=== PATIENT | female | born 1930 | race Caucasian/White ===

== ENCOUNTER 2016-09-04 22:20 | Observation (INO) | payer MEDICARE, MEDICAID, OTHER ==
[~2016-09-04] VITALS: Ht 162.6 cm; Wt 45.1 kg
[2016-09-04 23:18] VITALS: BP 146/68; PULSE 67; RESP 16; O2SAT 98
[2016-09-04] MEDS ORDERED: Alum-Mag Hydrox-Simeth 30 mL Suspension PO PRN (23:25)
[2016-09-04] MEDS ORDERED: Ondansetron 2 mg/mL 2 mL Inj IVPUSH PRN (23:25)
[2016-09-04] MEDS ORDERED: Polyethylene Glycol (PEG) 17 Gm Powder PO PRN (23:25)
[2016-09-04] MEDS: 0.9% Sodium Chloride 1,000 ML IV SCH (23:47)
[2016-09-05 00:44] LABS: BASOPHILS % (AUTO) 0.2 % (0-3); EOSINOPHILS % (AUTO) 0.6 % (0-5); MONOCYTES % (AUTO) 10.6 % (4-12); Mean Corpuscular Hemoglobin 25.4 pg (27.0-35.0); Mean Corpuscular Volume 80.3 fL (81-100); NEUTROPHILS % (AUTO) 71.2 % (40-74); Platelet Count 359 bil/L (150-400)
[2016-09-05 00:51] LABS: Magnesium 2.2 mg/dL (1.6-2.6)
[2016-09-05 02:09] LABS: APPEARANCE,URINE SLIGHTLY CLOUDY (CLEAR,HAZY); COLOR,URINE YELLOW (YELLOW); OCCULT BLOOD,URINE LARGE (NEGATIVE); UROBILINOGEN,URINE NORMAL (NORMAL)
--- NOTE | 2016-09-05 04:06 | HP ---
[address] [address] HISTORY AND PHYSICAL PATIENT: ALIYAH CALDERON : 1930 MR#: [id number] ADMIT: 09/04/2016 JOB ID: [id number] DATE OF SERVICE: 09/04/2016 PRIMARY CARE PROVIDER: None listed. CHIEF COMPLAINT: Altered mental status, very drowsy. HISTORY OF PRESENT ILLNESS: This is an 86-year-old female, who was a resident of a [facility]. Best I can tell, was transferred here from [facility] as there were apparently no beds at [facility]. She was found to have a urinary tract infection with UA significant for specific gravity greater than 1.030, trace protein, 1-3 WBCs, greater than 15 epithelial cells, many bacteria and leukocyte esterase was negative. Negative nitrite. White count 9.3, hematocrit 34.7, MCV 78, platelets 406. Calculated GFR was greater than 60. TSH 4.824. Chest x-ray appeared clear per ER MD at [facility], had CT of head without contrast, which did not reveal any abnormalities. The patient cannot give a history. Apparently her p.o. intake was fairly poor over the past several days. She has a post form which states DNR limited interventions. PAST MEDICAL HISTORY: Dementia, history of OCD, history of dysphagia, history of renal failure. MEDICATIONS: Upon admission: 1. Celexa 10 mg p.o. daily. 2. Melatonin 5 mg at bedtime daily. 3. Seroquel 300 mg at bedtime daily. 4. Lorazepam 0.5 mg p.r.n. 6. Vitamin D 400 units p.o. daily. 7. Tylenol 650 mg once weekly. 8. MiraLAX 17 g p.o. daily. 9. Multivitamin 1 tab p.o. daily. ALLERGIES: 1. CHLORPROMAZINE. 2. THIORIDAZINE. SOCIAL HISTORY: Lives at [facility]. Smoking and alcohol apparently none. REVIEW OF SYSTEMS: Unable to get a history from her. PHYSICAL EXAMINATION: Reveals blood pressure 119/63, heart rate 62, respiratory rate 15, O2 sat room air 95%. Constitutional: Elderly woman who appears cachectic. Head: Normocephalic, atraumatic. Eyes: PERRLADC. Mouth: No lesions. Neck: No adenopathy. Chest is clear to auscultation. Cor: Regular rate and rhythm. S1, S2. Abdomen is soft, nontender. Bowel sounds are present. Extremity exam reveals no pedal edema. Skin reveals no rashes. Psych: Unable to assess. Neuro: She responds to painful stimuli, does seem to move all extremities, will not respond to verbal commands. LABORATORIES: As above. Also to include white count 9.3, hematocrit 34.7, MCV 78, platelets of 406 with 77% polys, 14% lymphs. INR is 1.1. Lactic acid 1.0. Glucose 113, BUN 28, creatinine 0.8. Calculated GFR greater than 60. Sodium 145, potassium 4.0, chloride 108, bicarb 27, calcium 8.9. Total protein 7.5, albumin 2.7, total bili 0.4, alkaline phosphatase 65, ALT 19, AST 28. We need to get CT of head results, which were given to me by ED physician. ASSESSMENT AND PLAN: 1. Urinary tract infection ,present on admit,Acute, place on IV Rocephin. I am a bit concerned that her urine does not show any white cells and is a poor specimen with a lot of epithelial cells and bacteria. We will try to get a straight cath specimen from her. We will continue with IV Rocephin. Monitor labs. 2. Acute encephalopathy,present on admit,acute Most likely related to possible UTI and dehydration. Proceed with treatment for these and monitor. 3. Dementia, present on admission, chronic. 4. Deep venous thrombosis prophylaxis. We will use sequential compression devices and subcu Lovenox. 5. Psychiatric disease. We will continue with her home meds but will get a swallow eval prior to giving. CODE STATUS: The patient is DNR and limited interventions. TIME SPENT: 60 minutes. ASHUTOSH
[2016-09-05] MEDS ORDERED: DIPH25CA6 PO (05:05)
[2016-09-05] MEDS ORDERED: ESCI5SOL4 PO (05:05)
[2016-09-05] MEDS ORDERED: MULT-1018 PO (05:05)
[2016-09-05] MEDS ORDERED: ACET325T51 PO (05:05)
[2016-09-05] MEDS ORDERED: ERGO400T3 PO (05:05)
[2016-09-05] MEDS ORDERED: LORA0.5T PO (05:05)
[2016-09-05] MEDS ORDERED: QUET50TA55 PO ×2 (05:05)
[2016-09-05] MEDS ORDERED: MELA5TAB14 PO (05:05)
[2016-09-05] MEDS ORDERED: DEXT1DRO8 BOTH_EYES (05:05)
[2016-09-05] MEDS ORDERED: DOCU250C2 PO (05:05)
[2016-09-05] MEDS ORDERED: QUET300T44 PO (05:05)
[2016-09-05] MEDS ORDERED: TRAZ-115 PO ×2 (05:05)
[2016-09-05] MEDS ORDERED: POLY17PO2 PO (05:05)
[2016-09-05] MEDS ORDERED: BISA10EN RC (05:05)
[2016-09-05] MEDS ORDERED: ESCI10TA52 PO (05:08)
[2016-09-05 05:11] VITALS: BP 134/73; PULSE 75; RESP 18; O2SAT 95
--- NOTE | 2016-09-05 06:41 | NUR ---
Admit Pt admitted around 2345 from [facility]. Pt non-verbal on arrival and does not follow any commands. Admit done from HP from care facility, Med rec completed according to MAR from care facility. UA obtained via straight cath. Pt moaning occasionally but unable to make needs known.
[2016-09-05] MEDS: cefTRIAXone Inj 1,000 MG in IV Premix 1 EACH IV SCH (08:39)
[2016-09-05 09:44] VITALS: BP 138/70; PULSE 71; RESP 19; O2SAT 98
[2016-09-05] MEDS: 0.9% Sodium Chloride 1,000 ML IV SCH ×2 (10:12→19:23)
--- NOTE | 2016-09-05 12:50 | NUR ---
Evaluation completed. Please go to "Notes" then click on "Assessments and Notes" (bottom left corner of screen). Then select appropriate discipline tab on top of screen.
[2016-09-05 15:07] VITALS: BP 145/83; PULSE 66; RESP 19; O2SAT 99
--- NOTE | 2016-09-05 16:10 | NUR ---
NUTRITION ASSESSMENT: ASSESS:86 YO female admitted with urinary tract infection. [facility] and apparently has had minimal PO intake past several days. She presents with acute encephalopathy, present on admit, most likely related to possible UTI and dehydration, although she does have dementia. Swallow evaluation ordered; per Speech Therapy, the patient is not safe for oral intake at this time. Code status: DNR / DNI with limited interventions. PMHx:Dementia, history of OCD, history of dysphagia, history of renal failure. DIET:NPO. LABS: Reviewed. Cr 0.54, Glu 103, Alb 3.1. MEDICATIONS: Reviewed. NUTRITION FOCUSED PHYSICAL ASSESSMENT: GI symptoms / stool: None reported.Manohar: 14. Skin Integrity: No issues reported. ANTHROPOMETRICS: Current Wt: 45.0 kgBMI: 17.0 kg/m2. IBW: 45.0 kg (82.5% IBW) ESTIMATED NEEDS (WEIGHT GAIN): Calories: 1350 - 1575 kcal (30 - 35 kcal / kg BW) Protein: 54 - 68 g protein (1.2 - 1.5 g / kg BW) Fluid: Approx. 1125 mL fluid (25 mL / kg BW) NUTRITION DIAGNOSIS: 1)Inadequate oral intake related to AMS, dysphagia, as evidenced by requirement to maintain NPO status, per ST order. INTERVENTION: 1) Monitor NPO status. Pt. is DNR / DNI with limited interventions; will not make nutrition support recommendations at this time. 2)Will add supplements once diet advance. MONITOR/EVALUATE: Diet advance / tolerance, PO intake, labs, GI/nutrition status. Follow up per high nutrition risk guidelines.
[2016-09-05 20:23] VITALS: BP 147/78; PULSE 96; RESP 16; O2SAT 99
--- NOTE | 2016-09-05 20:47 | NUR ---
IV: new iv placed in pt. she pulled iv out on previous shift due to dementia, NS @100, pt. is npo. Addendum: 09/05/16 at 7783 by DONALD SAWANT RN pt. pulled out her new iv
--- NOTE | 2016-09-05 20:58 | PCM.PNMED ---
Subjective Date of Service Sep 05, 2016 Subjective Patient sleeping, no complaints of chest pain, dyspnea, nausea vomiting noted Exam Vital Signs Vital Sign - Last Date Time Temp Pulse Resp B/P Pulse Ox O2 Delivery O2 Flow Rate FiO2 09/05/16 20:23 36.9 96 16 147/78 99 Room Air Intake and Output 09/04/16 09/04/16 09/05/16 Cumulative From/Thru 15:00 23:00 07:00 09/04/16 23:17 - 09/05/16 05:10 Intake Total 0 ml 0 ml Output Total 200 ml 200 ml Balance -200 ml -200 ml Intake Oral 0 ml 0 ml Output Urine Total 200 ml 200 ml # Voids 1 1 Exam Gen.: Patient sleeping in bed comfortably Eyes: Closed normal eyelids HEENT: Normal nose, normal ears Neck: Trachea midline supple CVS: Normal rate Pulmonary: Normal rate, no accessory muscle usage or evidence of respiratory distress GI: Abdomen flat Musculoskeletal: Extremities moving 4 no obvious defects Neuro: From nerves II through XII intact to gross examination, and nonfocal Skin: Warm and dry Psych: not roused to quiet voice not assessed Lab and Diagnostics Result Diagram: 09/05/16709/05/167 Assessment & Plan 86-year-old female admitted for encephalopathy secondary to UTI/sepsis UTI- on Rocephin 09/04 Encephalopathy/dementia- no issues behavioral or otherwise reported. The patient was asleep when I saw her nothing else was reported Prophylaxis- DVT patient has SCDs, GI not indicated Disposition patient is DO NOT RESUSCITATE, reportedly chronic long term resident Patient new to me today VTE Mechanical Devices: Intermittant Pneumatic CD Teo Renee MD Sep 05, 2016 20:58
[2016-09-06 01:20] LABS: Mean Corpuscular Hemoglobin 25.2 pg (27.0-35.0); Mean Corpuscular Volume 79.6 fL (81-100)
[2016-09-06 01:21] LABS: BASOPHILS % (AUTO) 0.2 % (0-3); EOSINOPHILS % (AUTO) 0.6 % (0-5); NEUTROPHILS % (AUTO) 73.4 % (40-74); Platelet Count 391 bil/L (150-400)
[2016-09-06 01:40] VITALS: BP 148/73; PULSE 67; RESP 20; O2SAT 94
[2016-09-06] MEDS: 0.9% Sodium Chloride 1,000 ML IV SCH ×2 (05:04→11:11)
--- NOTE | 2016-09-06 05:21 | NUR ---
behavior: pt. pulling everything off, clothes, brief, pt. constantly putting her hands in her brief, near her buttocks, unsure if she is constipated. pt. moans, nonverbal.
[2016-09-06 06:46] VITALS: BP 148/64; PULSE 61; RESP 18; O2SAT 96
--- NOTE | 2016-09-06 10:45 | NUR ---
Restraints Pt has pulled out 4 IV lines. Pt is non verbal and non compliant with keeping lines in. Pt will not keep hands out of bottom area. Soft limb restraints applied at 1045. Signed order is in the chart. Care continues.
[2016-09-06] MEDS: cefTRIAXone Inj 1,000 MG in IV Premix 1 EACH IV SCH (11:11)
--- NOTE | 2016-09-06 11:27 | PCM.PNMED ---
Subjective Date of Service Sep 06, 2016 Subjective - Pt seen and examined this morning. - She removed IV line multiple times last night and she was also agitated. Will place her on soft restraints. Exam Vital Signs Vital Sign - Last Date Time Temp Pulse Resp B/P Pulse Ox O2 Delivery O2 Flow Rate FiO2 09/06/16 06:46 37.0 61 18 148/64 96 Room Air Intake and Output 09/05/16 09/05/16 09/06/16 Cumulative From/Thru 15:00 23:00 07:00 09/04/16 23:17 - 09/06/16 06:46 Intake Total 0 ml 0 ml Output Total 375 ml 379 ml 954 ml Balance -375 ml -379 ml -954 ml Intake Oral 0 ml 0 ml Output Urine Total 375 ml 379 ml 954 ml # Voids 1 # Bowel Movements 0 0 Exam Gen.: Patient sleeping in bed comfortably Eyes: Closed normal eyelids HEENT: Normal nose, normal ears Neck: Trachea midline supple CVS: Normal rate Pulmonary: Normal rate, no accessory muscle usage or evidence of respiratory distress GI: Abdomen flat Musculoskeletal: Extremities moving 4 no obvious defects Neuro: From nerves II through XII intact to gross examination, and nonfocal Skin: Warm and dry Psych: not roused to quiet voice not assessed Lab and Diagnostics Result Diagram: 09/06/16 01109/06/16 0110 Assessment & Plan 86-year-old female admitted for encephalopathy secondary to UTI/sepsis UTI- - on Rocephin 09/05 - Will continue Encephalopathy/dementia- - no issues behavioral or otherwise reported. - She was agitated last night and removed her IV line multiple times. - Will do Swallow evaluation as she is not eating Prophylaxis- DVT patient has SCDs, GI not indicated Disposition patient is DO NOT RESUSCITATE, reportedly chronic shelter resident VTE Mechanical Devices: Intermittant Pneumatic CD Regino Santacruz MD Sep 06, 2016 11:27
[2016-09-06 13:43] VITALS: BP 158/75; PULSE 107; RESP 18; O2SAT 97
[2016-09-06 21:37] VITALS: BP 158/79; PULSE 64; RESP 18; O2SAT 100
--- NOTE | 2016-09-06 23:38 | NUR ---
IV/Behavior PIV to right AC noted to be occluded and would not flush. New IV started in left forearm by [facility] PRACTICE NURSE PSYCHOTHERAPIST. Asymptomatic and infusing without issue. Patient remains in restraints for safety and noted to be restless and pulling at gown and brief. Addendum: 09/07/16 at 0548 by TIA ESQUIVEL RN IVF total this shift= 1461 ml. Pump not cleared on previous shift.
[2016-09-07] MEDS: 0.9% Sodium Chloride 1,000 ML IV SCH ×2 (01:13→15:43)
[2016-09-07 07:33] VITALS: BP 152/76; PULSE 71; RESP 16; O2SAT 100
[2016-09-07] MEDS: cefTRIAXone Inj 1,000 MG in IV Premix 1 EACH IV SCH (07:38)
[2016-09-07 09:31] LABS: BASOPHILS % (AUTO) 0.2 % (0-3); EOSINOPHILS % (AUTO) 0.3 % (0-5); MONOCYTES % (AUTO) 9.4 % (4-12); Mean Corpuscular Hemoglobin 25.2 pg (27.0-35.0); Mean Corpuscular Volume 77.5 fL (81-100); NEUTROPHILS % (AUTO) 75.9 % (40-74); Platelet Count 465 bil/L (150-400)
--- NOTE | 2016-09-07 11:13 | PCM.PNMED ---
Subjective Date of Service Sep 07, 2016 Subjective - Pt seen and examined bed side. - She gets agitates intermittently and removing her IV lines. Currently on soft restraints. Exam Vital Signs Vital Sign - Last Date Time Temp Pulse Resp B/P Pulse Ox O2 Delivery O2 Flow Rate FiO2 09/07/16 07:33 36.6 71 16 152/76 100 Room Air Intake and Output 09/06/16 09/06/16 09/07/16 Cumulative From/Thru 15:00 23:00 07:00 09/04/16 23:17 - 09/07/16 05:47 Intake Total 592 ml 1461 ml 2053 ml Output Total 954 ml Balance 592 ml 1461 ml 1099 ml Intake Oral 0 ml 0 ml IV Total 592 ml 1461 ml 2053 ml Output Urine Total 954 ml # Voids 3 4 # Bowel Movements 0 0 Exam Gen.: Patient sleeping in bed comfortably Eyes: Closed normal eyelids HEENT: Normal nose, normal ears Neck: Trachea midline supple CVS: Normal rate Pulmonary: Normal rate, no accessory muscle usage or evidence of respiratory distress GI: Abdomen flat Musculoskeletal: Extremities moving 4 no obvious defects Neuro: From nerves II through XII intact to gross examination, and nonfocal Skin: Warm and dry Psych: not roused to quiet voice not assessed IVs and Medications Medications Reviewed: Medications were reviewed in detail Lab and Diagnostics Result Diagram: 09/07/16 0909/07/16 0920 Assessment & Plan 86-year-old female admitted for encephalopathy secondary to UTI/sepsis UTI- - on Rocephin 09/05 - Will continue Hypokalemia - Likely due to poor oral intake - K today: 3.1 - Will replete is Encephalopathy/dementia- - She was agitated intermittently and removed her IV line multiple times. - Will do Swallow evaluation as she is not eating Prophylaxis- DVT patient has SCDs, GI not indicated Disposition patient is DO NOT RESUSCITATE, reportedly chronic [facility] resident VTE Mechanical Devices: Intermittant Pneumatic CD Resuscitation Status: DNR/DNI:Do Not Resuscitate/Intubate Regino Santacruz MD Sep 07, 2016 11:13
[2016-09-07] MEDS ORDERED: KCl 40 mEq/D5W 500 mL 40 MEQ in IV Premix 1 EACH IV ONE (11:15)
--- NOTE | 2016-09-07 11:35 | NUR ---
Case Management: Attempted to contact guardian and give OBS info.; unable to reach due to Holiday. Michelle [phone]. Trinity Bender RN
[2016-09-07 15:49] VITALS: BP 163/94; PULSE 64; RESP 16; O2SAT 96
--- NOTE | 2016-09-07 16:34 | NUR ---
Social Work Screen Note EMR Reviewed. Legal Aid met with patient at bedside in attempt to complete initial assessment, but the patient was only oriented to self and unable to answer any questions. Legal Aid attempted to call the numbers listed for patient,s BECKY Currie @ [phone] but there was no answer. SW left a detailed message with her name and telephone number requesting a call back. SW also attempted to call patient's guardian at [phone], but there was no answer. Legal Aid left a message requesting a call back. Legal Aid spoke with patient's nephew, Jeanie Tilley, but he stated that he was not able to offer much information because he has notseen the patient in a bout six months. SW will continue to try and contact patient's POA and guardian. Plan: SW will continue to try and contact patient's POA and guardian. Zandra Soto LMSW, ACM
--- NOTE | 2016-09-07 16:34 | NUR ---
Took over care at 3:30 pm Addendum: 09/07/16 at 1634 by MAREK SOTELO CNA Amended: Links added.
--- NOTE | 2016-09-07 18:22 | NUR ---
pt had one incontinent brief on my shift. I have no idea whether or not she had one earlier as there was nothing written down on I & O sheet Addendum: 09/07/16 at 1823 by MAREK SOTELO CNA Amended: Links added.
[2016-09-07 20:34] VITALS: BP 146/80; PULSE 72; RESP 18; O2SAT 94
--- NOTE | 2016-09-07 23:55 | NUR ---
deon breen infused sans problem, infusion rate decreased to 100ml an hour due to light red around site.
--- NOTE | 2016-09-08 05:56 | NUR ---
Fluids IV total this shift= 1830 ml. Pump not cleared on previous shift.
[2016-09-08 05:59] VITALS: BP 140/74; PULSE 71; RESP 18; O2SAT 98
[2016-09-08 08:07] LABS: BASOPHILS % (AUTO) 0.1 % (0-3); EOSINOPHILS % (AUTO) 0.3 % (0-5); MONOCYTES % (AUTO) 9.1 % (4-12); Mean Corpuscular Hemoglobin 25.1 pg (27.0-35.0); Mean Corpuscular Volume 75.6 fL (81-100); NEUTROPHILS % (AUTO) 74.2 % (40-74); Platelet Count 473 bil/L (150-400)
[2016-09-08 08:40] LABS: Magnesium 1.6 mg/dL (1.6-2.6)
[2016-09-08] MEDS: cefTRIAXone Inj 1,000 MG in IV Premix 1 EACH IV SCH (08:45)
[2016-09-08] MEDS: 0.9% Sodium Chloride 1,000 ML IV SCH ×2 (08:48→08:49)
--- NOTE | 2016-09-08 11:37 | NUR ---
NUTRITION FOLLOW-UP: ASSESS: 86 YO female admitted with urinary tract infection and encephalopathy. Reportedly pt had minimal PO intake prior to admit. Since admit she has been NPOx4 days per ST due to AMS and chronic dysphagia. Palliative is to get involved for goals of care. Pt is underwt with a BMI of 16.8kg/m2 and has lost 1.5lbs since admit. PMHx: Dementia, history of OCD, COPD, history of dysphagia, history of renal failure. DIET: NPO x4 days LABS: Reviewed. Heel Stainer .32, Glu 104, Ca 8.0, Alb 2.8 MEDICATIONS: Reviewed. GI symptoms / stool: 0 BM Skin Integrity: Manohar 16 ANTHROPOMETRICS: Current Wt: 44.3 kg BMI: 16.8 kg/m2., admit wt 45kg IBW: 54kg ESTIMATED NEEDS (WEIGHT GAIN): Calories: 1350 - 1575 kcal (30 - 35 kcal / kg BW) Protein: 54 - 68 g protein (1.2 - 1.5 g / kg BW) Fluid: 1350ml/day (30cc/kg) NUTRITION DIAGNOSIS: 1) Inadequate oral intake related to AMS, dysphagia, as evidenced by requirement to maintain NPO status, per ST order.PERSISTS 2) Chew/swallow difficulty related to AMS and chronic dysphagia as evidence by NPO per ST 3) Moderate pro/kcal malnutrition related to AMS and decreased PO intake as evidence by BMI of 16.8, poor PO intake prior to admit and NPOx4 days due to severe dysphagia. INTERVENTION: 1) Will continue to monitor NPO status and for goals of care per palliative care 2) Continue diet recommendations per ST 3) If pt continues to be NPO and pt's POA and guardian want to move forward with nutrition support, recommend start TF of Jevity 1.5 @ 10ml/hr. Hold at 10ml/hr x24 hrs to monitor for tolerance as pt is at high risk for re-feeding. If tolerated, will advance by 10ml q 6 hrs until reach goal rate of 45ml/hr to provide 1552kcal and 66g pro (100% estimated needs). Fluid flush 70ml q 3 hrs if IVF off. MONITOR/EVALUATE: NPO status, goals of care, diet advc vs nutr support? labs, GI/nutrition status. Follow up per high nutrition risk guidelines.
--- NOTE | 2016-09-08 12:04 | NUR ---
Palliative Care Palliative Care received verbal order from Dr Ratliff 09/08/16 to assist with goals of care. Patient is an 86-year-old female admitted 09/04/16 for encephalopathy secondary to UTI/sepsis. Taina Currie (POA) [phone] "Guardian" [phone] Jeanie Tilley (nephew) no contact number Palliative Care to follow. Ofelia Evans
--- NOTE | 2016-09-08 14:29 | NUR ---
Case Management: OBS brochure explained to Guardian, Hanane Samuels from [facility]. Trinity Bender RN
--- NOTE | 2016-09-08 14:30 | PCM.CONPAL ---
Date of Service Sep 08, 2016 Date of Hospital Admission: Sep 04, 2016 at 23:07 Date of Palliative Consult: Sep 08, 2016 Requesting Provider: Jerardo Ratliff DO Reason Palliative Care Consult: Goals of Care Discussion Reason for Consultation Palliative Care received verbal order from Dr Ratliff 09/08/16 to assist with goals of care. Patient is an 86-year-old female admitted 09/04/16 for encephalopathy secondary to UTI/sepsis. Taina Currie (POA) [phone] "Guardian" [phone] Jeaniejanie Tilley (nephew) no contact number Palliative Care Recommendation Summary of palliative recommendations: Symptom management (Pain/other): per Attending Hospitalist ([facility] Team/Dr. Ratliff) team. DPOA/Advanced Directives/POLST: 1. Code is DNR/DNI on EMR. 2. POLST in paper chart says DNR with limited interventions. For Palliative Care 09/09/16 follow-up: Consider asking LG on 09/09 whether she would be willing to sign an updated POLST that amends her prior POLST to: DNR/DNI and no feeding tube that we fax to her? Family/emotional support: Patient has a court-appointed Legal Guardianship. The LG regional sales coordinator today (09/08/2016) for the [facility] Guardianship Service: Taina Currie (POA) [phone] or [phone] Spiritual support: unclear of patient's past inclination towards quaker/ spirituality and her current spiritual needs. Hospice Eligibility: In my clinical opinion, this unfortunate lady with a BMI 16.8 and advanced dementia that leaves her bedbound and totally dependent on others, is eligible and meets Medicare criteria for hospice admission. Legal Guardian's Goals for patient: Dr. Moya spoke to LG on phone today as LG is based out of [place], [place] 1. Hospice?-- LG said that patient used to be in hospice until 2011 and was discharged for lack of decline. She would like to enroll patient in hospice again and will find out which hospice is acceptable to the adult family custodial where patient resides. She will contact with this information. 2. Feeding Tube?-- LG declines any artificial nutrition by tube feeding and will sign consent to allow patient to eat with 1:1 supervision pureed food and thickened liquids. It will be faxed over to her by the floor nursing desk admini/viscose cellar charge hand. Problems: Resuscitation Status Resuscitation Status: Limited Interventions (DNR with limited interventions) POLST Updates/Changes Previous POLST?: Yes POLST Last Review Date: Sep 08, 2016 Artificially Admin Nutrition: No Artifical Nutrition by Tube POLST Discussed with: Legal Guardian POLST Review Outcome: No Change Pt History History of Present Illness 86-year-old female admitted for encephalopathy secondary to UTI/sepsis Hospital Course: Being treated for presumptive UTI with Rocephin, started . UC came back 09/08 as no growth. She also has hypokalemia, currently being repleted by medical team. She has been agitated intermittently and trying to pull IV line (in for hydration). ST checked her 09/05 and made her NPO because not able to follow commands and absent swallow observed. Medications Scheduled Dextran 70/Hypromellose/Pf (Artificial Tears Drops) 1 Each Droperette 1 DROP BOTH_EYES DAILY Ergocalciferol (Vitamin D2) (Vitamin D) 400 Unit Tablet 400 UNIT PO DAILY Escitalopram Oxalate (Escitalopram Oxalate) 10 Mg Tablet 10 MG PO DAILY Melatonin (Melatonin) 5 Mg Tablet 5 MG PO DAILY Multivitamin (Multi Vitamin Daily) 1 Each Tablet 1 EACH PO DAILY Polyethylene Glycol 3350 (Polyethylene Glycol 3350) 17 Gm Powd.pack 17 GM PO DAILY Quetiapine Fumarate (Quetiapine Fumarate) 300 Mg Tablet 300 MG PO HS Quetiapine Fumarate (Quetiapine Fumarate) 50 Mg Tablet 50 MG PO DAILY Trazodone (Trazodone) 50 Mg Tablet 25 MG PO HS Scheduled PRN Acetaminophen (Acetaminophen) 325 Mg Tablet 325 MG PO Q4H PRN PRN For Pain Bisacodyl (Bisacodyl Rectal) 10 Mg/30 Ml Enema 10 MG RC DAILY PRN PRN For Constipation Docusate Sodium (Docusate Sodium) 250 Mg Capsule 250 MG PO BID PRN PRN For Constipation Lorazepam (Lorazepam) 0.5 Mg Tablet 0.5 MG PO Q6H PRN PRN For Agitation Quetiapine Fumarate (Quetiapine Fumarate) 50 Mg Tablet 50 MG PO BID PRN PRN For Agitation Trazodone (Trazodone) 50 Mg Tablet 25 MG PO BID PRN PRN Insomnia diphenhydrAMINE HCl (Benadryl) 25 Mg Capsule 25 MG PO DAILY PRN PRN Objective Findings Exam Vital Sign - Last Date Time Temp Pulse Resp B/P Pulse Ox O2 Delivery O2 Flow Rate FiO2 09/08/16 05:59 36.9 71 18 140/74 98 Room Air Intake and Output 09/07/16 09/07/16 09/08/16 Cumulative From/Thru 15:00 23:00 07:00 09/04/16 23:17 - 09/08/16 05:59 Intake Total 0 ml 0 ml 1830 ml 3883 ml Output Total 996 ml 588 ml 2538 ml Balance -996 ml 0 ml 1242 ml 1345 ml Intake Oral 0 ml 0 ml 0 ml 0 ml IV Total 1830 ml 3883 ml Output Urine Total 996 ml 588 ml 2538 ml # Voids 8 12 # Bowel Movements 0 0 0 0 General: Minimally responsive (nonverbal) HEENT: Atraumatic, Scleral Anicteric, Mucous Membranes Dry, Other (several missing teeth, food debris in front upper and lower teeth) Heart: Regular Rate/Rhythm, Normal S1, S2, No Murmurs/Rubs/Gallops Lungs: Clear to Auscultation Abdomen: Bowel Tones x4, Soft, Non Tender Neuro: Spontaneous Eye Opening Extremities: Pulses Palpable x4, Warm, No Edema Lab/Diagnostics Lab and Imaging results reviewed in detail in EMR. Time spent Total time 70 minutes; >50% face to face with patient and/or family, providing counselling regarding plans and recommendations, and in care coordination with his/her medical teams. I also spent an additional 35 minutes counseling for advanced care planning with the court-appointed Legal Guardian. Evelin Moya MD Sep 08, 2016 14:30
[2016-09-08 15:04] VITALS: BP 152/80; PULSE 63; RESP 18; O2SAT 98
--- NOTE | 2016-09-08 16:48 | NUR ---
diet/restraints d/c/skin DPOA signed "diet against advice" waiver. NS discontinued and soft limb restraints removed. Pt has been sleeping and quiet since restraints removed. Wakes to voice and turns for brief change, but resumes sleep when left alone. Buttocks with blanchable redness. Q 2hour turns, although pt does reposition self independently frequently. Calmoseptine applied. Continue to monitor and care.
--- NOTE | 2016-09-08 16:50 | NUR ---
Faxed facesheet and clinicals to [facility] per IMPERSONATOR CHARACTER [phone] Updated IMPERSONATOR CHARACTER
--- NOTE | 2016-09-08 17:28 | NUR ---
Social Work Initial Assessment D: EMR reviewed. Pt is an 86Y old female Nallely for FTT, UTI, AMS, Dehydrated. Insurance is Medicare and [facility] Supp ([id number]). PCP is Dr. Edilson Tipton at [facility]. Pt has dementia and Alzheimer's and unable to provide answers to questions. FAIZA spoke with Pt's assigned engineering project manager, Jo Ann Lancaster [phone] to obtain information. Jo Ann Lancaster works for [employer] who is the Pt's Guardian. Pt uses a wheel chair at base. Pt does have SNF History. Pt previously open with Hospice in 2015. Guardian gave a verbal for Pt to eat knowing Pt is a silent aspiration risk (previously known). Guardian would like Pt to return to the [facility], [facility] in [place], . Guardian requesting Home Hospice Services with [facility]. Mdm Sr faxed clinicals to hospice. FAIZA contacted SH[facility] Schmid at [facility]. Pt is able to return to their care with Hospice when medically stable. Pt will require [facility] transport at discharge. SW will need to follow up with [facility] on referral and notify guardian/AFH of Pt's anticipated discharge. SW following. A: Pt who comes from [facility], dementia and Alzheimer's at baseline. P: Pt to discharge back to [facility] with [facility] when medically stable. SW will need to follow up on Hospice Referral and updated guardian and AFH with anticipated discharge. FAIZA following. Marily ALANIZ Addendum: 09/08/16 at 1737 by MARILY RIBERA Amended: Links added.
--- NOTE | 2016-09-08 18:36 | PCM.PNMED ---
Subjective Date of Service Sep 08, 2016 Subjective Patient resting comfortably in bed, she is confused and does not follow commands. No family present at bedside. No indication of pain. Exam Vital Signs Vital Sign - Last Date Time Temp Pulse Resp B/P Pulse Ox O2 Delivery O2 Flow Rate FiO2 09/08/16 15:04 36.8 63 18 152/80 98 Room Air Intake and Output 09/07/16 09/07/16 09/08/16 Cumulative From/Thru 15:00 23:00 07:00 09/04/16 23:17 - 09/08/16 05:59 Intake Total 0 ml 0 ml 1830 ml 3883 ml Output Total 996 ml 588 ml 2538 ml Balance -996 ml 0 ml 1242 ml 1345 ml Intake Oral 0 ml 0 ml 0 ml 0 ml IV Total 1830 ml 3883 ml Output Urine Total 996 ml 588 ml 2538 ml # Voids 8 12 # Bowel Movements 0 0 0 0 Exam General: Alert, confused, NAD, frail-appearing Head: Normocephalic, atraumatic Eyes: GEE, EOMI, no scleral Icterus Chest: clear to auscultation B/L, no wheezing rales or rhonchi Heart: Regular rate and rhythm. Normal S1, S2, no murmurs noted Abdomen: soft, non-tender. Bowel sounds are normoactive. No guarding or rebound. Extremities: no cyanosis, clubbing or edema. IVs and Medications Medications Reviewed: Medications were reviewed in detail Lab and Diagnostics Result Diagram: 09/08/16 0755 09/08/16 0755 Assessment & Plan 86-year-old female admitted for encephalopathy secondary to UTI/sepsis. She comes from an adult family home UTI- - on Rocephin 09/05 - Will continue Hypokalemia - Likely due to poor oral intake - Improving - Replacing Encephalopathy/dementia- - Acute on chronic likely secondary to urinary tract infection Severe protein calorie malnutrition: -Speech therapy recommends nothing by mouth -Legal guardian declines nothing by mouth, would like the patient on a diet and declines alternative feeding methods. -I will place patient on a dysphagia diet. One-to-one feeding Prophylaxis- DVT patient has SCDs, GI not indicated Disposition patient is DO NOT RESUSCITATE, lives at a adult family home. Consulted palliative care, moving towards comfort care measures. VTE Mechanical Devices: Intermittant Pneumatic CD Resuscitation Status: Limited Interventions (DNR with limited interventions) Jerardo Ratliff DO Sep 08, 2016 18:36
[2016-09-08 20:55] VITALS: BP 127/61; PULSE 53; RESP 18; O2SAT 98
--- NOTE | 2016-09-09 02:49 | NUR ---
Activity Patient resting/sleeping throughout shift. Did not respond to commands or questions regarding pain. VSS although heart sounds sound irregular.
[2016-09-09 05:38] VITALS: BP 148/79; PULSE 60; RESP 22; O2SAT 98
[2016-09-09] MEDS: cefTRIAXone Inj 1,000 MG in IV Premix 1 EACH IV SCH (09:16)
--- NOTE | 2016-09-09 09:47 | PCM.PALLBR ---
Palliative Care Recommendation Summary of palliative recommendations: Symptom management (Pain/other): per Attending Hospitalist ([facility] Team/Dr. Ratliff) team. DPOA/Advanced Directives/POLST: 1. Code is DNR/DNI on EMR. 2. POLST in paper chart says DNR with limited interventions. I spoke today with Taina Kush at the legal guardianship service- she agreed with the plan to change the POLST to indicate no artificial nutrition, but then informed me that that at time of discharge from this facility that the patient is going to be entering the care of [facility]. Given that once she enters hospice a new POLSTwill be drawn up, will not make a new one today just changing the artificial nutrition section. Plan will be for the patient to discharge back to [facility] with [facility] support. Family/emotional support: Patient has a court-appointed Legal Guardianship. Spoke again today with [facility] Guardianship Service: Taina Currie ([facility]) [phone] or [phone] Spiritual support: unclear of patient's past inclination towards orthodoxy/ spirituality and her current spiritual needs. Hospice Eligibility: In my clinical opinion, this unfortunate lady with a BMI 16.8 and advanced dementia that leaves her bedbound and totally dependent on others, is eligible and meets Medicare criteria for hospice admission. Legal Guardian's Goals for patient: Dr. Cleveland spoke again today with LG on phone today as LG is based out of [place], [place] 1. Hospice?-- As noted above 2. Feeding Tube?-- LG declines any artificial nutrition by tube feeding and has signed consent to allow patient to eat with 1:1 supervision pureed food and thickened liquids. Problems: End of Life Preferences DO NOT RESUSCITATE/DO NOT INTUBATE/progressing to hospice Goals of Care Supportive care Disposition Return to [facility] with [facility] Resuscitation Status Resuscitation Status: DNR/DNI:Do Not Resuscitate/Intubate (DNR with limited interventions) POLST Updates/Changes Previous POLST?: Yes POLST Last Review Date: Sep 08, 2016 Artificially Admin Nutrition: No Artifical Nutrition by Tube POLST Discussed with: Legal Guardian POLST Review Outcome: No Change . Advanced Care Planning Address: POLST Pain: None Total time 45 minutes; >50% face to face with patient and legal guardians, providing counselling regarding plans and recommendations, and in care coordination with her medical teams. Of the above total time, 15 minutes counseling for advanced care planning with the patient's legal guardians Palliative Brief Note Date of Service Sep 09, 2016 . Return to reevaluate patient. Prior to visiting, reviewed her records in the EMR and spoke with her bedside nurse. When I arrived, she is lying in bed, sleeping. Difficult to arouse and will only crack her eyes open briefly, then turns away and goes back to sleep. In no distress. Document on chart allowing oral intake despite aspiration risk. On exam, frail elderly woman lying in bed, somnolent. Vital signs noted. Skin is warm and dry. Head and neck exam unremarkable. Lungs clear anterolaterally , heart sounds irregularly irregular, abdomen soft and without tenderness. Trace edema at ankles. Hussein Cleveland MD Sep 09, 2016 09:47
--- NOTE | 2016-09-09 11:20 | NUR ---
Wound Care Pressure ulcer protocol received, patient seen at bedside. No skin issues identified at this time.
[2016-09-09] MEDS ORDERED: CEPH-512 PO (12:48)
--- NOTE | 2016-09-09 12:49 | PCM.DIMED ---
Discharge Instructions Date of Service Sep 09, 2016 Dates of Hospitalization Sep 04, 2016 at 23:07 Discharge Diagnosis Discharge Diagnosis Acute on chronic encephalopathy UTI-being treated Diet Other (dysphagia diet) Activity No restrictions Patient Instructions Follow-up plan Patient will be managed by hospice care. Jerardo Ratliff DO Sep 09, 2016 12:49
--- NOTE | 2016-09-09 13:50 | NUR ---
Social Work Discharge D: EMR reviewed. Pt is an 86Y old female Nallely for FTT, UTI, AMS, Dehydrated on 09/04/16. Pt is medically stable today. PCP is Dr. Edilson Tipton at [facility]. Pt has dementia and Alzheimer's Jo Ann Lancaster [phone] is Pt's assigned Guardian [facility] . Pt uses a wheel chair at base. Guardian gave a verbal for Pt to eat knowing Pt is a silent aspiration risk (previously known). Guardian would like Pt to return to the [facility], [facility] in [place], . Guardian requesting Home Hospice Services with [facility]. Clinicals & Discharge faxed. FAIZA contacted Hospice to confirm receipt. There is not a firm open date for Hospice service but will be open within the next few days. FAIZA contacted SHONA Schmid at [facility]. Pt is able to return to their care with Hospice to open in a few days. FAIZA updated Guardian as to d/c plan for Pt. FAIZA faxed MELISSA transport request to [facility] requesting cabulance transport for 1430. Ppwk faxed to [facility], originals will go with patient. All parties updated and agreeable to plan. A: Pt who comes from [facility], dementia and Alzheimer's at baseline. P: Pt to discharge back to [facility] with [facility] today via [facility] transport. Clinicals and discharge faxed to [facility], confirmed receipt and ability to open in a few days. AF and Guardian updated. All parties updated and agreeable to plan. Marily ALANIZ Addendum: 09/09/16 at 1558 by MARILY RIBERA Pt transported at 1600. All parties updated. CORBIN Wilkinson
[2016-09-09 14:24] VITALS: BP 152/74; PULSE 63; RESP 20; O2SAT 98
--- NOTE | 2016-09-09 17:05 | NUR ---
discharged to [facility], Marichuy De Jesus in [place] report called to [facility], Rx called into [facility] (per request of [facility]) for Keflex and hard copy sent with pt. She was transported via cabulance
--- NOTE | 2016-09-09 19:42 | PCM.DC.MED ---
Discharge Summary Date of Service Sep 09, 2016 Dates of Hospitalization Date of Hospital Admission Sep 04, 2016 at 23:07 Date of Discharge: Sep 09, 2016 Providers: Admitting Physician: Meli Banuelos MD Primary Care Physician: Nasrin Attending Physician: Meli Banuelos MD Diagnosis at Time of Discharge Diagnosis at Time of Discharge Acute on chronic encephalopathy UTI-being treated Brief History 86-year-old female admitted for encephalopathy secondary to UTI/sepsis Hospital Course: Being treated for presumptive UTI with Rocephin, started . UC came back 09/08 as no growth. She also has hypokalemia, currently being repleted by medical team. She has been agitated intermittently and trying to pull IV line (in for hydration). ST checked her 09/05 and made her NPO because not able to follow commands and absent swallow observed. Hospital Course 86-year-old female admitted for encephalopathy secondary to UTI/sepsis. She comes from an adult family home. She was started on Rocephin and remained stable through her hospital stay. Palliative care was consulted due to her general debility and severe dementia. Her legal guardian was contacted by palliative care is established with the patient would wish to be on comfort care measures at this point in time. Eventually the patient was discharged to her adult family home and will have hospice follow up with her in 2 or 3 days. She was discharged home with Keflex. She was stable at the time of discharge. Delineated problem list as below UTI- - on Rocephin 09/05 - Will continue Hypokalemia - Likely due to poor oral intake - Improving - Replacing Encephalopathy/dementia- - Acute on chronic likely secondary to urinary tract infection Severe protein calorie malnutrition: -Speech therapy recommends nothing by mouth -Legal guardian declines nothing by mouth, would like the patient on a diet and declines alternative feeding methods. -I will place patient on a dysphagia diet. One-to-one feeding Exam Vital Signs (Last) Date Time Temp Pulse Resp B/P Pulse Ox O2 Delivery O2 Flow Rate FiO2 09/09/16 14:24 36.7 63 20 152/74 98 Room Air Test 09/05/16 00:08 09/05/16 01:00 09/08/16 07:55 09/09/16 07:25 Hemoglobin A1c 5.9% (4.8-5.6) Urine Color Yellow (YELLOW) Urine Appearance Slightly cloudy Urine pH 6.0 (5.0-8.0) Urine Specific [place] 1.025 (1.003-1.035) Urine Protein Tracemg/dL (NEG,TRACE) Urine Glucose (UA) Negativemg/dL (NEGATIVE) Urine Ketones Negativemg/dL (NEGATIVE) Urine Occult Blood Large (NEGATIVE) Urine Nitrite Positive (NEGATIVE) Urine Bilirubin Negative (NEGATIVE) Urine Urobilinogen Normalmg/dL (NORMAL) Urine Leukocyte Esterase Negative (NEGATIVE) Urine RBC 3-10/hpf (0-2) Urine WBC 11-50/hpf (0-5) Urine Epithelial Cells Few/hpf (NONE-MOD) Urine Crystals None seen (NONE SEEN) Urine Bacteria Many/hpf (NONE-FEW) Urine Hyaline Casts None/lpf (NONE) Urine Granular Casts None seen (NONE SEEN) Urine Waxy Casts None seen (NONE SEEN) Urine Red Blood Cell Casts None seen (NONE SEEN) Urine White Blood Cell Casts None seen (NONE SEEN) Urine Mucus Present (None Seen) Urine Trichomonas None seen (NONE SEEN) Urine Yeast None (NONE SEEN) Urine Culture Reflexed Indicated White Blood Count 9.8th/mm3 (3.8-10.1) Red Blood Count 4.27mil/mm3 (3.90-5.20) Hemoglobin 10.7g/dL (12.0-15.6) Hematocrit 32.3% (35.0-46.0) Mean Corpuscular Volume 75.6fL (81-100) Mean Corpuscular Hemoglobin 25.1pg (27.0-35.0) Mean Corpuscular Hemoglobin Concent 33.1% (32.0-37.0) Red Cell Distribution Width 15.2% (12.3-15.4) Platelet Count 473bil/L (150-400) Neutrophils (%) (Auto) 74.2% (40-74) Lymphocytes (%) (Auto) 16.0% (14-46) Monocytes (%) (Auto) 9.1% (4-12) Eosinophils (%) (Auto) 0.3% (0-5) Basophils (%) (Auto) 0.1% (0-3) Sodium Level 137mEq/L (134-144) Potassium Level 3.5mEq/L (3.5-5.2) Chloride Level 102mEq/L (97-108) Carbon Dioxide Level 21mmol/L (18-29) Blood Urea Nitrogen 8mg/dL (8-27) Creatinine 0.32mg/dL (0.57-1.00) Estimat Glomerular Filtration Rate 280mL/min (>59) Glucose Level 104mg/dL (60-99) Calcium Level 8.0mg/dL (8.5-10.1) Magnesium Level 1.6mg/dL (1.6-2.6) Total Bilirubin 0.6mg/dL (0.0-1.2) Aspartate Amino Transf (AST/SGOT) 26U/L (0-50) Alanine Aminotransferase (ALT/SGPT) 12U/L (0-32) Alkaline Phosphatase 61U/L (25-165) Total Protein 5.8g/dL (6.4-8.4) Albumin 2.6g/dL (3.4-5.0) Prealbumin 8mg/dL (20-40) Discharge Medications Discharge Medications Cephalexin (Keflex) 500 Mg Capsule 500 MG PO QID Prescribed by: MANN RATLIFF DO Dextran 70/Hypromellose/Pf (Artificial Tears Drops) 1 Each Droperette 1 DROP BOTH_EYES DAILY (Reported) Ergocalciferol (Vitamin D2) (Vitamin D) 400 Unit Tablet 400 UNIT PO DAILY ( Reported) Escitalopram Oxalate (Escitalopram Oxalate) 10 Mg Tablet 10 MG PO DAILY ( Reported) Melatonin (Melatonin) 5 Mg Tablet 5 MG PO DAILY (Reported) Multivitamin (Multi Vitamin Daily) 1 Each Tablet 1 EACH PO DAILY (Reported) Polyethylene Glycol 3350 (Polyethylene Glycol 3350) 17 Gm Powd.pack 17 GM PO DAILY (Reported) Quetiapine Fumarate (Quetiapine Fumarate) 300 Mg Tablet 300 MG PO HS (Reported) Quetiapine Fumarate (Quetiapine Fumarate) 50 Mg Tablet 50 MG PO DAILY (Reported ) Trazodone (Trazodone) 50 Mg Tablet 25 MG PO HS (Reported) As needed Acetaminophen (Acetaminophen) 325 Mg Tablet 325 MG PO Q4H PRN PRN For Pain ( Reported) Bisacodyl (Bisacodyl Rectal) 10 Mg/30 Ml Enema 10 MG RC DAILY PRN PRN For Constipation (Reported) Docusate Sodium (Docusate Sodium) 250 Mg Capsule 250 MG PO BID PRN PRN For Constipation (Reported) Lorazepam (Lorazepam) 0.5 Mg Tablet 0.5 MG PO Q6H PRN PRN For Agitation ( Reported) Quetiapine Fumarate (Quetiapine Fumarate) 50 Mg Tablet 50 MG PO BID PRN PRN For Agitation (Reported) Trazodone (Trazodone) 50 Mg Tablet 25 MG PO BID PRN PRN Insomnia (Reported) diphenhydrAMINE HCl (Benadryl) 25 Mg Capsule 25 MG PO DAILY PRN PRN (Reported) Followup Plan Follow-up plan Patient will be managed by hospice care. Discharge Diet: Other (dysphagia diet) Discharge Activity: No restrictions Mann Ratliff DO Sep 09, 2016 19:42
== END 2016-09-09 16:26 | disposition hospice, home (50) ==
LOC: INTOOBSV 23:07 → OSC 23:07
PROVIDERS: ADMIT Specialist; ATTEND Specialist
DX: G93.40 Encephalopathy, unspecified (principal); N39.0 Urinary tract infection, site not specified; E87.6 Hypokalemia; E43 Unspecified severe protein-calorie malnutrition; F03.90 Unspecified dementia, unspecified severity, without behavioral disturbance, psychotic disturbance, mood disturbance, and anxiety; Z66 Do not resuscitate; Z51.5 Encounter for palliative care
CPT/HCPCS: 36415; 80048; 80053; 81000; 82040; 83036; 83735; 84134; 85025; 87086; 92610; 96365; 96366; 96375; G0378; G0379; J0696; J3480; J7030